=== PATIENT | female | born 1950 | race Caucasian/White ===

== ENCOUNTER → 2016-11-25 | Outpatient (CLI) | payer OTHER, MEDICARE ==
[~2016-11-25] MED LIST: AMITRIPTYLINE H75 M2; B-COMPLEX 100400 MC1; CALCIUM CITRAT250 MG; CELEXA 20 MG TA20 M1; EVISTA; LIPITOR20 MG; MIACALCIN; MOBIC15 MG; MULTIVITAMINS; OMEPRAZOLE40 MG; VITAMINC500
== END ==
LOC: RAD 01:04
DX: Z12.31 Encounter for screening mammogram for malignant neoplasm of breast (principal)

== ENCOUNTER → 2017-07-23 | Outpatient (CLI) | payer OTHER, MEDICARE | LOC: NUC 07-22 11:05 | DX: M85.89 Other specified disorders of bone density and structure, multiple sites (principal); M81.0 Age-related osteoporosis without current pathological fracture; Z78.0 Asymptomatic menopausal state ==

== ENCOUNTER → 2017-08-19 | Outpatient (CLI) | payer OTHER, MEDICARE | LOC: ULTRA 09:43 | DX: R10.11 Right upper quadrant pain (principal) ==

== ENCOUNTER → 2017-09-22 | Outpatient (CLI) | payer OTHER, MEDICARE | LOC: CAT 09:16 | DX: K44.9 Diaphragmatic hernia without obstruction or gangrene (principal) ==

== ENCOUNTER 2017-10-06 08:20 | Inpatient (IN) | payer OTHER, MEDICARE ==
[~2017-10-06] VITALS: Ht 162.6 cm; Wt 72.6 kg
--- NOTE | ~2017-10-06 | H ---
[facility] [place] [address] HISTORY AND PHYSICAL Name: BEE MITCHELL Room #: 409-P ADM IN M.R.#: [id number] Admission: 10/31/17 Attend Phys: Yan Huffman MD Discharge: Date of : 52 Report #: [id number] THIS REPORT FOR: //name// CC: Steven Seymour MD PREOPERATIVE DIAGNOSES: Abdominal pain; moderately large paraesophageal hiatal hernia, here for repair; and cholecystectomy. HISTORY OF PRESENT ILLNESS: The patient is a 66-year-old who has been complaining of mid chest pain going to the right side of her back. Pain is described as stabbing in nature. The pain was bad enough that in July, she went to the Emergency Room. Had an EKG and a chest x-ray. Chest x-ray showed that she had a hiatal hernia. At the time of pain, she did complain of difficulty breathing. The patient has had pains in the past, and usually comes on about 30 minutes after eating. She has been taking omeprazole for acid reflux over the last 6 years. Six years ago, the patient had an EGD performed that showed hiatal hernia plus esophagitis. The patient says that the current pain symptoms are different than her reflux symptoms, which was burning and throat irritation. Usually when the pain hits her, she will have to walk around and this gets better in about an hour or so. She also complains being bloated and gassy. She has been on a pretty bland diet. She has had back pains. Her symptoms have gradually gotten worse. The pain is associated with food, but not any particular food. The patient has been taking Tums. She had an ultrasound performed and there were no stones. The patient had a PIPIDA scan and her gallbladder ejection fraction was 81%. Did not reproduce pain. The patient went for a CT scan, which did confirm about a third to a half of her stomach was up in the chest. She underwent an EGD, which showed the esophagus was normal. The stomach and duodenum was also normal. The hiatal narrowing was at 40 cm from the incisor. Z line was 35 cm from the incisor. Subsequent to that, the patient had a manometry and the manometry was unremarkable with some early contractions. Manometry was normal from standpoint that she is okay to proceed with repair of hiatal hernia and Vinayak fundoplication. PAST MEDICAL HISTORY: She has a history of high blood pressure. The patient has stage 3 chronic kidney disease. MEDICATIONS: Raloxifene, calcitonin, omeprazole, atorvastatin, amitriptyline, metoprolol 25 daily, calcium, vitamins, biotin. ALLERGIES: SHE IS ALLERGIC TO MORPHINE AND CODEINE. FAMILY HISTORY: Unremarkable. REVIEW OF SYSTEMS: No headache, blurred vision, palpitation. [address] [address] HISTORY AND PHYSICAL Name: BEE MITCHELL Room #: 409-P [facility] IN M.R.#: [id number] Admission: 10/31/17 Attend Phys: Yan Huffman MD Discharge: Date of : 52 Report #: [id number] PHYSICAL EXAMINATION: VITAL SIGNS: Blood pressure is 126/70. She is 5 feet 4 inches and weighs 160 pounds. GENERAL: She is alert and oriented. HEENT: Pupils react to light. Extraocular muscles are intact. Oropharynx is clear. NECK: Soft and supple, no masses. No JVD. HEART: Regular rate and rhythm. No murmur or gallop. Normal S1, S2. LUNGS: Clear. No wheezes. ABDOMEN: Soft, nondistended, nontender. No mass, guarding, rigidity. No ascites. EXTREMITIES: No cyanosis, clubbing or edema. NEUROLOGIC: She is alert and oriented x 3. Normal strength. Sensory exam is unremarkable. IMPRESSION: The patient is a 66-year-old with pain attacks that is consistent with either gallbladder disease or hiatal hernia, symptomatic paraesophageal hiatal hernia. Surgery is recommended. I recommend repairing of the large hiatal hernia, which is likely going to get worse with time. Laparoscopic cholecystectomy is recommended. The risk of procedure including bleeding, infection, injury of the esophagus, injury of the bile duct were discussed. Recurrence of the hiatal hernia. Difficulty with swallowing and dysphagia was discussed. The patient understands these risks and wishes to proceed. <ELECTRONICALLY SIGNED> By: Yan Huffman MD 11/01/17 1222 2311 [id number] Yan Huffman MD /nt
--- NOTE | ~2017-10-06 | O ---
[facility] [place] [address] OPERATIVE REPORT Name: BEE MITCHELL Room #: 409-P [facility] IN M.R.#: [id number] Admission: 10/31/17 Attend Phys: Yan Huffman MD Discharge: Date of : 52 Report #: [id number] THIS REPORT FOR: //name// CC: Yan Seymour MD DATE OF SERVICE: 10/31/2017 PREOPERATIVE DIAGNOSES: Moderate size paraesophageal hiatal hernia and cholecystitis, acalculous. POSTOPERATIVE DIAGNOSES: Moderate size paraesophageal hiatal hernia and cholecystitis, acalculous. PROCEDURES PERFORMED: 1. Laparoscopic repair of paraesophageal hiatal hernia with Phasix ST mesh reinforcement of the diaphragmatic repair. 2. Laparoscopic Vinayak fundoplication. 3. Cholecystectomy. SURGEON: Yan Huffman M.D. ANESTHESIA: General anesthesia. ESTIMATED BLOOD LOSS: 30 mL. COMPLICATIONS: None. DESCRIPTION OF PROCEDURE: With the patient under general anesthesia, she was placed in supine position on a beanbag. IV antibiotic was administered. The patient was placed in lithotomy position. Alston catheter was placed. Abdomen was prepped and draped in sterile fashion. A 2 cm incision was made above the umbilicus about an inch or so. Fascia was identified, grasped with hemostat. Fascia was then opened under visualization, 0 Vicryl suture placed on the fascia for retraction. Veress needle was then placed through peritoneum. Abdominal cavity was insufflated with CO2. Pneumoperitoneum was established without difficulty. An 11 mm trocar was placed through this opening. A 5 mm trocar was placed in the right lateral abdomen. Another 5 mm trocar was placed on left side of the epigastrium and then, a 12 mm trocar was placed in the left upper quadrant midclavicular line, 5 mm trocar was placed in the left upper quadrant, left anterior axillary line. These were placed under visualization. The patient was then placed in the reverse Trendelenburg position. The left side was tilted up. The patient did have a moderate hiatal hernia. Estimate about a third of her stomach was up in the chest. The hiatus defect was quite large. The peritoneum was divided at the edge of the hiatus starting about [address] [address] OPERATIVE REPORT Name: BEE MITCHELL Room #: 409-P [facility] IN .R.#: [id number] Admission: 10/31/17 Attend Phys: Yan Huffman MD Discharge: Date of : 52 Report #: [id number] position and the peritoneum was grasped and dissected free out of the chest. This allowed the stomach to be reduced. There was an anterior sac. Posteriorly, there was also some peritoneum there too that was trimmed. OG tube was placed and I could not identify the esophagus. The esophagus freed in the chest from the thin filmy areolar tissue. The posterior vagal nerve was identified, preserved from harm. The aorta was visualized. Once the esophagus was free, the stomach was brought down. The patient's esophagus became intra-abdominal for about 4-5 cm when it was lifted up towards the top part of the hiatus. Prior to this, the stomach was freed from the gastrohepatic ligament and the lateral attachment to the gastrocolic omentum was free. This also divided the short gastric vessel. The stomach was actually easy to free from the sling and also from the diaphragmatic edges. Care was taken during the dissection and not really touching the esophagus at all. The diaphragmatic edges were well exposed. It was a large-sized defect. The diaphragmatic crura was reapproximated using a 2-0 Ethibond suture. Pledgets were applied. Four separate sutures were placed closing the crura. A 50-S[place] Arabian bougie was placed orally down into the stomach. The diaphragm opening was sized with the bougie and it has a pretty good size to it. The bougie was put down and pulled back during the dissection to allow the stomach and the esophagus to be moved to low easier. The cord diaphragm was reapproximated this way without difficulty. Phasix ST patch was then used. This is a 10 x 10 patch. I trimmed a little bit about 1 cm off the one side to fit inferiorly. A U shape cut was placed in the patch. The patch was placed with 12 mm trocar. This was then oriented. The ST mesh was sutured to the upper aspect of the diaphragmatic crura in the inside part of U of the mesh with CV2 Page-Ludin suture. Also single interrupted suture was placed at the upper aspect of the mesh in the lower part of the U to the diaphragm crura closure. Mesh seated well. Mesh was then tacked with SorbaFix to the rest of the way. Vinayak fundoplication was then performed. The posterior fundus was brought under the GE junction. This came over nicely. A suture of the Ethibond was placed on the fundus posteriorly and I was able to see the suture underneath the GE junction. I was able to pull this fundus across underneath the GE junction easily. The anterior part of the fundus was then sewn to the posterior part underneath the GE junction creating a Vinayak fundoplication. Three separate suture were used. Again, pledget was used. On the very top suture, a bite was taken of the anterior diaphragmatic ligament. No bleeding was visualized. The Tisseel was then placed over the parts of the Phasix mesh, tacked sealing it down. Next, attention was then placed to the gallbladder. The bougie was bougie was removed from the esophagus. The patient was then placed with the right side tilted up, head up still. A second right upper quadrant 5 mm trocar was placed right midclavicular line. The gallbladder was then identified. There was adhesion over the proximal part of the gallbladder. Part of the duodenum was also tethered up to the gallbladder. These were freed easily without harming the duodenum. There was some fatty adhesion that was present that was also divided. Peritoneum over the cystic duct was then dissected free. I was unable to do a cholangiogram because [facility] [address] [place] [address] OPERATIVE REPORT Name: BEE MITCHELL Room #: 409-P [facility] IN M.R.#: [id number] Admission: 10/31/17 Attend Phys: Yan Huffman MD Discharge: Date of : 52 Report #: [id number] getting the patient in lithotomy position made it not possible do an intraoperative cholangiogram. The common duct could be partially visualized medially. This gallbladder was followed to the cystic duct. Cystic duct was easily isolated. Two clips were placed in the proximal cystic duct, 1 in the distal and then divided. The artery was found adjacent to this. This was also clipped x 2 proximally, 1 distally and then divided. There was a small branch artery posteriorly and posterolaterally, this was also clipped x 1. Gallbladder was freed from the liver bed without difficulty. Gallbladder was then pulled through the 12 mm trocar, left upper quadrant. Gallbladder was opened off the field. There is cholesterolosis identified in the gallbladder. Liver bed was checked, hemostasis excellent. Clips were intact. Irrigation was performed. Irrigation was aspirated out. The patient was then flattened out. The trocars were then removed with evacuation of CO2 as much as possible. Prior to that, an 0 PDS was placed on the 12 mm trocar for transfascial closure. This was performed with an Endo suture retrieval technique. Skin was irrigated. The original downside for the 11 mm trocar was closed with 0 [id number] Vicryl x 2. Skin was closed with 5-0 PDS. Steri-Strip, Band-Aids applied. The patient tolerated procedure well. <ELECTRONICALLY SIGNED> By: Yan Huffman MD 11/01/17 1222 1629 1702 Yan Huffman MD /nt
--- NOTE | ~2017-10-06 | S ---
[facility] [place] [address] SURGICAL PATH RPT PROCEDURE Name: EDEL MITCHELL Room #: 409-P DIS IN M.R.#: [id number] Admission: 10/31/17 Date of : 52 Discharge: 11/02/17 Report #: [id number] Path Case #: [id number] PATHOLOGY REPORT COLLECTION DATE: 10/31/2017 RECEIVED DATE: 10/31/2017 SUBMITTING PHYS: Dr. Yan Huffman OTHER PHYS: Dr. Sergey Seymour SPECIMEN(S) RECEIVED: A.Hiatal hernia sac B.Gallbladder * * * * * * * * * * * * FINAL DIAGNOSIS: A. Fibroadipose tissue, "hiatal hernia sac," herniorrhaphy: - Fibroadipose tissue consistent with a hernia sac with edema and congestion. B. Gallbladder, "gallbladder," cholecystectomy: - Moderate chronic cholecystitis. ([facility]:; 11/04/2017) PATHOLOGIST: Chet Lemus M.D. REPORT ELECTRONICALLY SIGNED BY: Chet Lemus M.D. DATE/TIME: 11/04/2017 14:51 * * * * * * * * * * * * GROSS PATHOLOGY: A. Received in formalin labeled "Edel Mitchell," is a piece of fibroadipose tissue measuring 10.0 x 5.0 x 1.0 cm. No nodules or lesions are identified. Dough Braker tissue is submitted in cassette A1. B. Received in formalin labeled "Edel Mitchell and gallbladder," is a previously opened 6.5 x 2.0 x 0.9 cm (upon reconstruction) gallbladder with a glistening vail-yellow serosal surfaces. The gallbladder reveals yellow-brown granular mucosa and an average wall thickness of 0.1 cm. Calculi are not present and no masses are noted grossly. Dough Braker sections from the body and fundus are submitted along with the proximal margin in cassette B1. ([facility]; 10/31/2017) CLINICAL HISTORY: Paraesophageal hiatal hernia INITIAL CPT CODE(S): [address] [address] SURGICAL PATH RPT PROCEDURE Name: KARLYEBENEZEREDEL Room #: 409-P [facility] IN M.R.#: [id number] Admission: 10/31/17 Date of : 52 Discharge: 11/02/17 Report #: [id number] Path Case #: [id number]; [id number] B; [id number] Professional services performed by [employer] at [address], [place] [address] Technical services performed by [employer] at [address] [place] [address], [facility] [address] [place] [address]. [facility] [address] [place] [id number] PHONE: [phone] DIRECTOR: Gabriele Myers M.D. * * * END OF REPORT * * *
[~2017-10-06 08:20] MED LIST changes: -AMITRIPTYLINE H75 M2; +AMITRIPTYLINE H75 M2 PO; +CALCITONIN-SAL3.7 ML NASAL; -CALCIUM CITRAT250 MG; +CALCIUM CITRAT250 MG PO; +ESTROVEN 155 M155 MG PO; -EVISTA; +EVISTA PO; -LIPITOR20 MG; +LIPITOR20 MG PO; -MULTIVITAMINS; +MULTIVITAMINS PO; -OMEPRAZOLE40 MG; +OMEPRAZOLE40 MG PO; +TOPROL XL25 MG PO; +VITAMIN B-12500 MC5 SUBLING; +VITAMIN D-32000 UNIT PO
[2017-10-31 08:49] VITALS: BP 155/80
[2017-10-31 16:25] VITALS: BP 146/84
[2017-10-31 16:50] VITALS: BP 151/74
[2017-10-31 17:55] VITALS: BP 149/80
[2017-10-31 18:45] VITALS: BP 157/74
[2017-10-31 20:02] VITALS: BP 156/69
[2017-11-01 03:26] VITALS: BP 146/78
[2017-11-01 03:42] LABS: CALCIUM 8.9 mg/dL (8.5-10.1); CREATININE 1.2 mg/dL (0.6-1.0); POTASSIUM 3.9 mmol/L (3.5-5.1)
[2017-11-01 03:43] LABS: HEMATOCRIT 29.8 % (37.0-47.0); HEMOGLOBIN 9.7 gm/dL (12.0-15.0); MCH 26.1 pg (26.0-34.0); MCHC 32.6 g/dL (28.0-37.0); MCV 80.1 fL (80.0-100.0); RBC 3.73 mil/uL (4.20-5.00); WBC 15.1 thou/uL (4.0-11.0)
[2017-11-01 07:07] VITALS: BP 123/76
[2017-11-01 16:45] VITALS: BP 153/85
[2017-11-01 20:00] VITALS: BP 187/89
[2017-11-02 03:43] LABS: HEMATOCRIT 30.1 % (37.0-47.0); HEMOGLOBIN 9.8 gm/dL (12.0-15.0); MCH 25.8 pg (26.0-34.0); MCHC 32.5 g/dL (28.0-37.0); MCV 79.4 fL (80.0-100.0); RBC 3.79 mil/uL (4.20-5.00); WBC 13.5 thou/uL (4.0-11.0)
[2017-11-02 04:00] VITALS: BP 152/80
[2017-11-02 08:22] VITALS: BP 173/95
[2017-11-02] MEDS ORDERED: TRAMADOL 50 MG50 MG PO (11:40)
[2017-11-02 11:55] VITALS: BP 173/95
== END 2017-11-02 15:14 | disposition home or self-care (01) | DRG 328 ==
LOC: PRE 08:20 → TBA 10-31 05:29 → PRE 10-31 11:07 → 4N 10-31 15:24
PROVIDERS: Surgery
PROC: 0BUT4JZ Supplement Diaphragm with Synthetic Substitute, Percutaneous Endoscopic Approach (ICD-10-PCS; principal; 2017-10-31)
PROC: 0FT44ZZ Resection of Gallbladder, Percutaneous Endoscopic Approach (ICD-10-PCS; 2017-10-31)
PROC: 0DV44ZZ Restriction of Esophagogastric Junction, Percutaneous Endoscopic Approach (ICD-10-PCS; 2017-10-31)
DX: K44.9 Diaphragmatic hernia without obstruction or gangrene (principal); K21.9 Gastro-esophageal reflux disease without esophagitis; N18.3 Chronic kidney disease, stage 3 (moderate); I12.9 Hypertensive chronic kidney disease with stage 1 through stage 4 chronic kidney disease, or unspecified chronic kidney disease; R00.0 Tachycardia, unspecified; R13.10 Dysphagia, unspecified; K81.9 Cholecystitis, unspecified; Z79.899 Other long term (current) drug therapy; Z88.8 Allergy status to other drugs, medicaments and biological substances
CPT/HCPCS: 10091; 50010; 50101; 50249; 50411; 50455; 50555; 50558; 50848; 51436; 51489; 52182; 52265; 53307; 53310; 53335; 54022; 54109; 55245; 56462; 56524; 56525; 56526; 56527; 56528; 62110; 62900; 65002; 70005

== ENCOUNTER → 2018-01-06 | Outpatient (CLI) | payer OTHER, MEDICARE ==
[~2018-01-06] MED LIST changes: +TRAMADOL 50 MG50 MG PO
== END ==
LOC: ULTRA 08:33
DX: I15.0 Renovascular hypertension (principal)

== ENCOUNTER → 2018-04-15 | Outpatient (CLI) | payer OTHER, MEDICARE | LOC: RAD 11:34 | DX: Z12.31 Encounter for screening mammogram for malignant neoplasm of breast (principal); I10 Essential (primary) hypertension ==

== ENCOUNTER → 2018-08-24 | Outpatient (CLI) | payer OTHER, MEDICARE | LOC: CAT 09:37 | DX: E34.0 Carcinoid syndrome (principal); K44.9 Diaphragmatic hernia without obstruction or gangrene; K42.9 Umbilical hernia without obstruction or gangrene; E11.65 Type 2 diabetes mellitus with hyperglycemia; I12.9 Hypertensive chronic kidney disease with stage 1 through stage 4 chronic kidney disease, or unspecified chronic kidney disease; E11.22 Type 2 diabetes mellitus with diabetic chronic kidney disease; N18.2 Chronic kidney disease, stage 2 (mild); M85.80 Other specified disorders of bone density and structure, unspecified site; E78.00 Pure hypercholesterolemia, unspecified; J45.909 Unspecified asthma, uncomplicated; K21.9 Gastro-esophageal reflux disease without esophagitis; M19.90 Unspecified osteoarthritis, unspecified site ==

== ENCOUNTER → 2019-04-19 | Outpatient (CLI) | payer OTHER, MEDICARE | LOC: BC 11:17 | DX: Z12.31 Encounter for screening mammogram for malignant neoplasm of breast (principal) ==

== ENCOUNTER → 2019-04-26 | Outpatient (CLI) | payer OTHER, MEDICARE | LOC: ULTRA 10:51 | DX: N60.02 Solitary cyst of left breast (principal) ==

== ENCOUNTER → 2020-04-20 | Outpatient (CLI) | payer OTHER, MEDICARE | LOC: NUC 08:07 → RAD 08:13 → NUC 10:16 | PROVIDERS: ATTEND Neuromusculoskeletal Medicine & OMM | DX: Z12.31 Encounter for screening mammogram for malignant neoplasm of breast (principal); M85.88 Other specified disorders of bone density and structure, other site; M81.0 Age-related osteoporosis without current pathological fracture ==

== ENCOUNTER → 2021-04-30 | Outpatient (CLI) | payer OTHER, MEDICARE | LOC: BC 14:25 | PROVIDERS: ATTEND Neuromusculoskeletal Medicine & OMM | DX: Z12.31 Encounter for screening mammogram for malignant neoplasm of breast (principal) ==